=== PATIENT | female | born 1955 | race African-American/Black ===

== ENCOUNTER 2022-12-24 15:48 | Emergency (ER) | payer OTHER, MEDICAID ==
[~2022-12-24] VITALS: Ht 160 cm; Wt 80.0 kg
[~2022-12-24 15:48] MED LIST: AMLO10TA4; HYDR25TA; [UNRECOGNIZED DRUG - REMARK]
[2022-12-24 16:07] VITALS: TEMP 98.7; O2SAT 99
[2022-12-24] MEDS ORDERED: NAPR-1129 MT (20:51)
[2022-12-24 20:58] VITALS: BP 152/77; PULSE 93; RESP 18
[2022-12-24] MEDS ORDERED: IBUPROFEN 600MG TABLET PO ONE (21:00)
== END 2022-12-24 21:18 | disposition home or self-care (01) ==
LOC: ER 15:48
DX: S09.90XA Unspecified injury of head, initial encounter (principal); G89.11 Acute pain due to trauma; I10 Essential (primary) hypertension; Z88.5 Allergy status to narcotic agent; Z98.890 Other specified postprocedural states; W19.XXXA Unspecified fall, initial encounter; Y93.89 Activity, other specified; Y92.89 Other specified places as the place of occurrence of the external cause; Y99.8 Other external cause status
CPT/HCPCS: 99284

== ENCOUNTER 2023-07-24 12:49 | Emergency (ER) | payer OTHER, MEDICAID ==
[~2023-07-24] VITALS: Ht 160 cm; Wt 83.0 kg
[~2023-07-24 12:49] MED LIST changes: +NAPR-1129 MT
[2023-07-24 12:54] VITALS: PULSE 100
[2023-07-24 13:07] VITALS: BP 161/78; RESP 18; TEMP 98.5; O2SAT 98
[2023-07-24] MEDS ORDERED: SULF1TAB48 MT (13:40)
[2023-07-24] MEDS ORDERED: NAPR-681 MT (13:40)
[2023-07-24] MEDS ORDERED: CEPH500C2 MT (13:40)
== END 2023-07-24 14:18 | disposition home or self-care (01) ==
LOC: ER 12:49
DX: L02.821 Furuncle of head [any part, except face] (principal); I10 Essential (primary) hypertension; Z98.890 Other specified postprocedural states; Z88.5 Allergy status to narcotic agent
CPT/HCPCS: 99283